=== PATIENT | female | born 1965 | race Two or more races ===

== ENCOUNTER 2016-12-25 23:24 | Emergency (ER) | payer OTHER ==
[~2016-12-25] VITALS: Ht 157.5 cm; Wt 102.1 kg
[2016-12-25] MEDS ORDERED: ONDANSETRON 4 MG/2 ML VIAL IV ONE (23:45)
[2016-12-25] MEDS ORDERED: IV NORMAL SALINE 1000 ML BAG IV ONE (23:45)
[2016-12-25] MEDS ORDERED: MORPHINE SULFATE 2 MG/1 ML DISP.SYRIN IV ONE (23:45)
[2016-12-25] MEDS ORDERED: ONDANSETRON 4 MG/2 ML VIAL ONE (23:59)
[2016-12-25] MEDS ORDERED: MORPHINE SULFATE 4 MG/1 ML DISP.SYRIN ONE (23:59)
[2016-12-26 00:02] LABS: BASOPHILS # (AUTO) 0.1 K/uL (0.0-8.0); BASOPHILS % (AUTO) 0.5 % (0.0-2.0); EOSINOPHILS # (AUTO) 0.3 K/uL (0.0-0.7); EOSINOPHILS % (AUTO) 2.7 % (0.0-7.0); HEMATOCRIT 38.8 % (31.2-41.9); HEMOGLOBIN 13.3 g/dL (10.9-14.3); LYMPHOCYTES # (AUTO) 2.3 K/uL (20.0-40.0); LYMPHOCYTES % (AUTO) 19.3 % (20.5-51.5); MEAN CORPUSCULAR HEMOGLOBIN 29.7 uug (24.7-32.8); MEAN CORPUSCULAR HGB CONC 34 g/dL (32.3-35.6); MONOCYTES # (AUTO) 0.6 K/uL (2.0-10.0); MONOCYTES % (AUTO) 5.3 % (0.0-11.0); NEUTROPHILS # (AUTO) 8.4 K/uL (1.8-8.9); NEUTROPHILS % (AUTO) 72.2 % (38.5-71.5); PLATELET COUNT (AUTO) 243 K/uL (179-408); RED BLOOD CELL COUNT(AUTO) 4.46 MIL/uL (3.63-4.92); RED CELL DISTRIBUTION WIDTH 12.8 % (12.3-17.7); WHITE BLOOD COUNT (AUTO) 11.7 K/uL (3.8-11.8)
[2016-12-26 00:04] LABS: *BILIRUBIN,URIN NEGATIVE (NEGATIVE); *BLOOD, URINE 3+ (NEGATIVE); *CLARITY,URINE CLOUDY (CLEAR); *COLOR,URINE YELLOW (YELLOW); *KETONES,URINE NEGATIVE (NEGATIVE); *PROTEIN,URINE 1+ (NEGATIVE); *UROBILINOGEN,URINE 0.2 E.U./dl (NORMAL); LEUKOCYTE ESTERASE ,URINE NEGATIVE (NEGATIVE); NITRITE, URINE NEGATIVE (NEGATIVE); PH,URINE 5.5 (5.0-8.0); UGLUCOSE NEGATIVE (NEGATIVE)
[2016-12-26 00:11] LABS: CALCIUM 8.8 mg/dL (8.5-10.1); CREATININE 0.8 mg/dL (0.6-1.3); POTASSIUM 3.8 mmol/L (3.5-5.1)
[2016-12-26 00:12] LABS: BACTERIA,URINE NONE SEEN /HPF (NONE SEEN); RBC,URINE TNTC /HPF (0-3); SQUAMOUS EPITHELIAL CELL,UR MODERATE /HPF (NONE SEEN); WBC,URINE 0-3 /HPF (0-3)
--- NOTE | 2016-12-26 00:15 | NUR ---
PT IN FOR RT FLANK PAIN..SEEN AND EXAMINED BY NOA W/ ORDERS. SALINE IV HUNG VIA LEFT AC SL. MEDS GIVEN ORDERED.
[2016-12-26 00:16] LABS: ALBUMIN 3.8 g/dL (3.4-5.0); BILIRUBIN,DIRECT 0.1 mg/dL (0.0-0.2); BILIRUBIN,TOTAL 0.5 mg/dL (0.2-1.0); TOTAL PROTEIN, SERUM 7.9 g/dL (6.4-8.2)
--- NOTE | 2016-12-26 00:45 | NUR ---
pt painfree at this time, pt to radiology for ct and back, awaiting results.
[2016-12-26 00:53] LABS: *URINE HCG, QUAL NEGATIVE (NEGATIVE)
[2016-12-26] MEDS ORDERED: TAMSULOSIN HCL 0.4 MG CAP.SR.24H PO ONE (01:45)
[2016-12-26] MEDS ORDERED: TAMSULOSIN HCL 0.4 MG CAP.SR.24H ONE (01:49)
--- NOTE | 2016-12-26 01:55 | NUR ---
all results in, Dr Mann in to talk to pt and family.. ready for discharge, iv sl disc and taken out with angio intact. presc explained and aci given,home ambulatory in stable cond.with family.daughter to drive.
[2016-12-26 02:28] VITALS: BP 108/60
== END 2016-12-26 02:00 | disposition home or self-care (01) ==
LOC: ER 23:38
DX: N23 Unspecified renal colic (principal); E11.9 Type 2 diabetes mellitus without complications; Z90.49 Acquired absence of other specified parts of digestive tract
CPT/HCPCS: 36415; 83690; 84703; 85025; 87086; A4663; J2270; J2405; J7030

== ENCOUNTER 2017-10-11 20:46 | Inpatient (IN) | payer OTHER ==
[~2017-10-11] VITALS: Ht 154.9 cm; Wt 90.7 kg
--- NOTE | 2017-10-11 20:53 | NUR ---
Seen and evaluated by Dr. Ahn.
[2017-10-11 21:15] LABS: BASOPHILS # (AUTO) 0.1 K/uL (0.0-8.0); BASOPHILS % (AUTO) 0.8 % (0.0-2.0); EOSINOPHILS # (AUTO) 0.2 K/uL (0.0-0.7); EOSINOPHILS % (AUTO) 1.7 % (0.0-7.0); HEMATOCRIT 39.1 % (31.2-41.9); HEMOGLOBIN 13.2 g/dL (10.9-14.3); LYMPHOCYTES # (AUTO) 2.2 K/uL (20.0-40.0); LYMPHOCYTES % (AUTO) 20.7 % (20.5-51.5); MEAN CORPUSCULAR HEMOGLOBIN 30.3 uug (24.7-32.8); MEAN CORPUSCULAR HGB CONC 34 g/dL (32.3-35.6); MEAN CORPUSCULAR VOLUME 89.5 fL (75.5-95.3); MONOCYTES # (AUTO) 0.5 K/uL (2.0-10.0); MONOCYTES % (AUTO) 5.1 % (0.0-11.0); NEUTROPHILS # (AUTO) 7.7 K/uL (1.8-8.9); NEUTROPHILS % (AUTO) 71.7 % (38.5-71.5); PLATELET COUNT (AUTO) 235 K/uL (179-408); RED BLOOD CELL COUNT(AUTO) 4.37 MIL/uL (3.63-4.92); WHITE BLOOD COUNT (AUTO) 10.7 K/uL (3.8-11.8)
[2017-10-11] MEDS ORDERED: NITROGLYCERIN OINT 1 GM PACKET TP ONE ×2 (21:15→21:41)
[2017-10-11] MEDS ORDERED: ASPIRIN 81 MG TAB.CHEW PO ONE (21:15)
[2017-10-11 21:26] LABS: CREATININE 0.7 mg/dL (0.6-1.3); POTASSIUM 4.6 mmol/L (3.5-5.1)
[2017-10-11] MEDS ORDERED: ASPIRIN 81 MG TAB.CHEW ONE (21:41)
--- NOTE | 2017-10-11 21:44 | NUR ---
Call placed to [facility], Dr. Vigil will be paged.
[2017-10-11 21:51] LABS: BILIRUBIN,DIRECT 0.1 mg/dL (0.0-0.2); BILIRUBIN,TOTAL 0.3 mg/dL (0.2-1.0); TOTAL PROTEIN, SERUM 7.7 g/dL (6.4-8.2)
[2017-10-11] MEDS ORDERED: ONDANSETRON 4 MG/2 ML VIAL IV PRN (22:00)
[2017-10-11] MEDS ORDERED: MORPHINE SULFATE 4 MG/1 ML DISP.SYRIN IV PRN (22:00)
[2017-10-11] MEDS ORDERED: MAGNESIUM HYDROXIDE 30 ML LIQUID UDC PO PRN (22:00)
[2017-10-11] MEDS ORDERED: DEXTROSE 50% 50 ML DISP.SYRIN IV PRN (22:00)
[2017-10-11] MEDS ORDERED: Z GUARD REMEDY PASTE 57 GM TUBE TOP PRN (22:00)
[2017-10-11] MEDS ORDERED: HYDROCODONE/APAP 5-325MG TABLET PO PRN (22:00)
[2017-10-11] MEDS ORDERED: ACETAMINOPHEN 325 MG TABLET PO PRN (22:00)
[2017-10-11] MEDS ORDERED: NITROGLYCERIN 0.4 MG/TAB BOTTLE SL PRN (22:00)
--- NOTE | 2017-10-11 22:07 | NUR ---
SBAR report given to Kemal STACK.
--- NOTE | 2017-10-11 22:32 | NUR ---
Pt. admitted to [facility], under care of Dr. Ayad Vigil Belongs List completed.
[2017-10-11 22:56] VITALS: BP 135/69
--- NOTE | 2017-10-11 23:00 | NUR ---
RECEIVED PT FROM ER VIA RICHI,ACCOMPANIED BY PT'S ;PT'S A/A/O X4,NEWLY ADMISSION FROM ER W/DX OF CHEST PAIN.PT STTAED THAT SHE HAD CHEST PAIN STARTED FROM EPIGASTRIC AND REFER TO BACK FOR 3 DAYS.UPN THIS TIME;PT DENIED OF PAIN OR ANY DISCOMFORT.UNIT ORIENTATION TO PT;SHE VERBALIZED UNDERSTANDING AND COOPERATIVE NOTED.ALREADY GOT ADMISSION ORDERS;CARRIED IT OUT AND UPDATED TO PT AND HER ;THEY VERBALIZED UNDERSTANDING AND COOPERATIVE NOTED.TELEMETRY'S SR 70/MIN.CONTINUED MONITORING TO PT.GAVE PT A JELLO X1 REQUEST;PT TOLERATED WELL.CALL-LIGHT WITHIN REACH.
--- NOTE | 2017-10-12 03:00 | NUR ---
PT SLEPT WELL,UNLABORED BREATHING NOTED.TELEMETRY'S SR 70/MIN.CONTINUED MONITORING TO PT.KEPT CALL-LIGHT WITHIN REACH.
[2017-10-12 04:00] VITALS: BP 96/46
[2017-10-12 04:43] LABS: CREATININE 0.6 mg/dL (0.6-1.3); MAGNESIUM 2.1 mg/dL (1.8-2.4); PHOSPHOROUS 3.3 mg/dL (2.5-4.9); POTASSIUM 4.1 mmol/L (3.5-5.1)
[2017-10-12 05:07] LABS: THYROID STIMULATING HORMONE 2.746 mIU/mL (0.358-3.740)
[2017-10-12 05:12] LABS: BASOPHILS # (AUTO) 0.1 K/uL (0.0-8.0); BASOPHILS % (AUTO) 0.8 % (0.0-2.0); EOSINOPHILS # (AUTO) 0.2 K/uL (0.0-0.7); EOSINOPHILS % (AUTO) 2.1 % (0.0-7.0); HEMATOCRIT 37.4 % (31.2-41.9); HEMOGLOBIN 12.6 g/dL (10.9-14.3); LYMPHOCYTES # (AUTO) 2.5 K/uL (20.0-40.0); LYMPHOCYTES % (AUTO) 25.3 % (20.5-51.5); MEAN CORPUSCULAR HEMOGLOBIN 30.1 uug (24.7-32.8); MEAN CORPUSCULAR HGB CONC 34 g/dL (32.3-35.6); MEAN CORPUSCULAR VOLUME 89.3 fL (75.5-95.3); MONOCYTES # (AUTO) 0.5 K/uL (2.0-10.0); MONOCYTES % (AUTO) 4.6 % (0.0-11.0); NEUTROPHILS # (AUTO) 6.6 K/uL (1.8-8.9); NEUTROPHILS % (AUTO) 67.2 % (38.5-71.5); PLATELET COUNT (AUTO) 235 K/uL (179-408); RED BLOOD CELL COUNT(AUTO) 4.19 MIL/uL (3.63-4.92); WHITE BLOOD COUNT (AUTO) 9.9 K/uL (3.8-11.8)
--- NOTE | 2017-10-12 06:20 | NUR ---
PT'S COMFORTABLE ON BED AT THIS TIME;DENIED OF PAIN.NO CHEST PAIN SINCE ADMISSION UNTIL NOW.TELEMETRY'S SR 70-78/MIN.NO DISTRESS NOTED IN THE SHIFT.KEPT COMFORT.CALL-LIGHT WITHIN REACH.
[2017-10-12] MEDS: BLOOD SUGAR DIAGNOSTIC 1 EACH STRIP VI SCH ×4 (06:33→21:29)
[2017-10-12] MEDS ORDERED: METF-495 PO (06:41)
[2017-10-12] MEDS: ASPIRIN EC 81 MG TABLET.DR PO SCH (08:27)
[2017-10-12] MEDS: INSULIN REGULAR, HUMAN 300 UNIT/3 ML VIAL SQ PRN ×4 (08:29→21:34)
[2017-10-12] MEDS ORDERED: REGADENOSON 0.4 MG/5 ML PREFILLED SYR IV ONE (08:30)
[2017-10-12 11:48] VITALS: BP 131/55
[2017-10-12 15:54] VITALS: BP 128/59
--- NOTE | 2017-10-12 19:00 | NUR ---
RECEIVED PATIENT NO SOB NO CHEST PAIN, REMIND TO BE NPO AFTER MIDNIGHT, FAMILY AT BED SIDE. CALL LIGHT WITHIN REACH.
[2017-10-12 20:00] VITALS: BP 131/57
[2017-10-12] MEDS ORDERED: SIMVASTATIN 10 MG TABLET PO SCH (21:00)
[2017-10-12 23:00] VITALS: BP 139/67
[2017-10-13 04:00] VITALS: BP 118/59
[2017-10-13] MEDS: BLOOD SUGAR DIAGNOSTIC 1 EACH STRIP VI SCH ×2 (06:52→11:30)
--- NOTE | 2017-10-13 07:00 | NUR ---
RECEIVED PATIENT IN BED ASLEEP A AND O X 4 NO ACUTE DISTRESS NOTED. ON TELE SR. NPO SINCE MIDNIGHT. FOR NUCLEAR MEDICINE STRESS TEST AT [facility]9:30 AM [employer] TIME 8:30AM. AC BLOOD SUGAR 150, NO INSULIN COVERAGE GIVEN SINCE PATIENT IS NPO. WILL CONTINUE TO MONITOR CLOSELY.
--- NOTE | 2017-10-13 08:45 | NUR ---
EMT FROM [facility] ARRIVED TO FOOD CONCESSION MANAGER PATIENT AND BRING TO [facility] FOR PROCEDURE. REPORT AND TRANSFER PAPERS GIVEN TO EMT, PATIENT IN STABLE CONDITION WHEN TRANSFERRED.
[2017-10-13] MEDS: ASPIRIN EC 81 MG TABLET.DR PO SCH (09:00)
[2017-10-13] MEDS ORDERED: PANT40TA2 PO (10:04)
--- NOTE | 2017-10-13 11:30 | NUR ---
ACCUCHECK NOT DONE, PATIENT NOT IN HOSPITAL TAKEN TO [facility] AT 0845 FOR STRESS TEST PROCEDURE.
[2017-10-13] MEDS ORDERED: REGADENOSON 0.4 MG/5 ML PREFILLED SYR IV ONE (14:17)
--- NOTE | 2017-10-13 14:30 | NUR ---
PATIENT COME BACK FROM [facility] S/P STRESS TEST ACCOMPANIED BY EMT/AMBULNZ IN STABLE CONDITON. STRESS TEST RESULTS WERE NORMAL. PATIENT WITH ORDERS FOR DISCHARGE.
[2017-10-13 14:38] VITALS: BP 127/66
--- NOTE | 2017-10-13 15:30 | NUR ---
dishcharged in stable condition. discharge instructions and papers given to patient. patient verbalized understanding of health teachings. explained prescribed medication and how to take it. removed iv site and id band. patient left hospital accompanied by daughter via private car.
== END 2017-10-13 15:30 | disposition home or self-care (01) | DRG 243 ==
LOC: ER 20:47 → TELE 22:18
DX: K22.4 Dyskinesia of esophagus (principal); E11.9 Type 2 diabetes mellitus without complications; E66.9 Obesity, unspecified; I51.7 Cardiomegaly; K21.9 Gastro-esophageal reflux disease without esophagitis; Z90.49 Acquired absence of other specified parts of digestive tract; Z68.37 Body mass index [BMI] 37.0-37.9, adult; Z79.84 Long term (current) use of oral hypoglycemic drugs; Z79.899 Other long term (current) drug therapy
CPT/HCPCS: 36415; 70030-TC; 71045; 78452; 83735; 84100; 84443; 85025; 85730; 93005; 93307; A4663; A9502; J1815; J2785

== ENCOUNTER 2019-09-11 18:02 | Emergency (ER) | payer MEDICAID, OTHER ==
[~2019-09-11] VITALS: Ht 157.5 cm; Wt 88.9 kg
[~2019-09-11 18:02] MED LIST: METF-495 PO; PANT40TA2 PO
[2019-09-11] MEDS ORDERED: ATORVASTATIN (18:30)
[2019-09-11] MEDS ORDERED: ASPI-605 PO (18:30)
[2019-09-11] MEDS ORDERED: CLON0.1T PO (18:30)
[2019-09-11] MEDS ORDERED: CARV6.252 PO (18:30)
[2019-09-11] MEDS ORDERED: GLIM4TAB37 PO (18:30)
[2019-09-11] MEDS ORDERED: [UNRECOGNIZED DRUG - OTHER] (18:30)
[2019-09-11] MEDS ORDERED: OMEP40CA13 PO (18:30)
--- NOTE | 2019-09-11 18:35 | NUR ---
PATIENT WAS SEEN BY
[2019-09-11] MEDS ORDERED: HYDROMORPHONE 1 MG/1 ML DISP.SYRIN IV ONE ×2 (18:45→20:00)
[2019-09-11] MEDS ORDERED: ONDANSETRON 4 MG/2 ML VIAL IV ONE (18:45)
[2019-09-11] MEDS ORDERED: KETOROLAC TROMETHAMINE 15 MG INJ IVP ONE (18:45)
[2019-09-11] MEDS ORDERED: KETOROLAC TROMETHAMINE 15 MG INJ ONE (18:51)
[2019-09-11] MEDS ORDERED: ONDANSETRON 4 MG/2 ML VIAL ONE (18:52)
[2019-09-11 19:14] LABS: BASOPHILS # (AUTO) 0.1 K/uL (0.0-8.0); BASOPHILS % (AUTO) 0.8 % (0.0-2.0); EOSINOPHILS # (AUTO) 0.3 K/uL (0.0-0.7); EOSINOPHILS % (AUTO) 2.9 % (0.0-7.0); HEMOGLOBIN 13.7 g/dL (10.9-14.3); LYMPHOCYTES # (AUTO) 2.3 K/uL (20.0-40.0); LYMPHOCYTES % (AUTO) 21.1 % (20.5-51.5); MEAN CORPUSCULAR HEMOGLOBIN 30.4 uug (24.7-32.8); MEAN CORPUSCULAR HGB CONC 33 g/dL (32.3-35.6); MONOCYTES # (AUTO) 0.5 K/uL (2.0-10.0); MONOCYTES % (AUTO) 4.2 % (0.0-11.0); NEUTROPHILS # (AUTO) 7.6 K/uL (1.8-8.9); PLATELET COUNT (AUTO) 215 K/uL (179-408); RED BLOOD CELL COUNT(AUTO) 4.51 MIL/uL (3.63-4.92); WHITE BLOOD COUNT (AUTO) 10.8 K/uL (3.8-11.8)
--- NOTE | 2019-09-11 19:15 | NUR ---
HAND OFF REPORT GIVEN TO ANGELA STACK
[2019-09-11 19:16] LABS: *BILIRUBIN,URIN 1+ (NEGATIVE); *BLOOD, URINE 3+ (NEGATIVE); *CLARITY,URINE CLOUDY (CLEAR); *KETONES,URINE TRACE (NEGATIVE); *UROBILINOGEN,URINE 0.2 E.U./dl (NORMAL); LEUKOCYTE ESTERASE ,URINE NEGATIVE (NEGATIVE); NITRITE, URINE NEGATIVE (NEGATIVE); PH,URINE 5.5 (5.0-8.0)
[2019-09-11 19:16] LABS: CREATININE 0.7 mg/dL (0.6-1.3); POTASSIUM 4.2 mmol/L (3.5-5.1)
[2019-09-11 19:22] LABS: BILIRUBIN,DIRECT 0.2 mg/dL (0.0-0.2); BILIRUBIN,TOTAL 0.5 mg/dL (0.2-1.0); TOTAL PROTEIN, SERUM 7.5 g/dL (6.4-8.2)
[2019-09-11 19:23] LABS: *COLOR,URINE BROWN (YELLOW); UGLUCOSE 1+ (NEGATIVE)
[2019-09-11 19:33] LABS: MUCUS,URINE MANY /LPF (0-FEW); RBC,URINE 80-100 /HPF (0-3); SQUAMOUS EPITHELIAL CELL,UR MODERATE /HPF (NONE SEEN)
[2019-09-11 19:36] LABS: BACTERIA,URINE MODERATE /HPF (NONE SEEN); URINE AMORPHOUS URATE FEW /HPF
[2019-09-11] MEDS ORDERED: HYDROMORPHONE 1 MG/1 ML DISP.SYRIN ONE (19:57)
--- NOTE | 2019-09-11 20:00 | NUR ---
PATIENT REQUESTING PAIN MEDICATION BUT DOES NOT WANT TO TAKE FULL DOSE OF DILAUDID. DR TATE AWARE.
[2019-09-11] MEDS: IV NORMAL SALINE 1000 ML BAG IV ONE (20:03)
[2019-09-11] MEDS ORDERED: TAMSULOSIN HCL 0.4 MG CAP.SR.24H ONE (20:58)
[2019-09-11] MEDS ORDERED: TAMSULOSIN HCL 0.4 MG CAP.SR.24H PO ONE (21:00)
--- NOTE | 2019-09-11 21:00 | NUR ---
PATIENT STATES "I FEEL BETTER NOW. I WANT TO GO HOME."
--- NOTE | 2019-09-11 21:04 | NUR ---
IV removed. Catheter intact and site benign. Pressure and 4x4 gauze applied to site. No bleeding noted.
[2019-09-11 21:06] VITALS: BP 140/72
--- NOTE | 2019-09-11 21:07 | NUR ---
Patient discharged to home in stable conditon WITH BROTHER TAKING PATIENT HOME. Written and verbal after care instructions given. Patient verbalizes understanding of instructions. WALKED OUT OF ER WITH NO DISTRESS NOTED.
== END 2019-09-11 21:09 | disposition home or self-care (01) ==
LOC: ER 18:11
DX: N20.1 Calculus of ureter (principal); E11.9 Type 2 diabetes mellitus without complications; Z90.49 Acquired absence of other specified parts of digestive tract; Z79.82 Long term (current) use of aspirin; Z79.899 Other long term (current) drug therapy
CPT/HCPCS: 36415; 76770; 80048; 80076; 81000; 81001; 83690; 85025; 85730; 87086; 96374; 96375; 99284; J1170; J1885; J2405; A4663; J7030